=== PATIENT | female | born 1970 | race Caucasian/White ===

== ENCOUNTER 2016-06-25 13:06 | Emergency (ER) | payer MEDICAID ==
[~2016-06-25] VITALS: Ht 152.4 cm; Wt 76.0 kg
[~2016-06-25 13:06] MED LIST: FIORICET PO; HYD25 PO; IMIT25 PO; KENC1 TOP; ONDA4TAB35 PO; PRED20TA PO
[2016-06-25 13:34] VITALS: Ht 152.4 cm; Wt 76.0 kg
[2016-06-25] MEDS ORDERED: ACET500C5 PO (14:58)
[2016-06-25] MEDS ORDERED: ACETAMINOPHEN 325 MG TAB PO ONE (15:00)
[2016-06-25] MEDS ORDERED: SODI126M NASAL (15:01)
[2016-06-25] MEDS ORDERED: GUAI-637 PO (15:01)
[2016-06-25 16:00] VITALS: BP 148/70; PULSE 100; RESP 16; TEMP 98.3
--- NOTE | 2016-06-25 20:02 | ERD ---
ER Documentation Chief Complaint Date/Time DATE: 06/25/16 TIME: 19:56 Chief Complaint PT HAS COUGH X 3 WEEKS, TEMP 101.2, HR 114 HPI 46-year-old female complaining of cough and fever 3 days. Cough is nonproductive. She also reports body aches and headache. She did not take any medication at home for fever or pain. Denies shortness of breath. Denies abdominal pain, nausea, vomiting, or diarrhea. Denies neck pain. ROS All systems reviewed and are negative except as per history of present illness. Medications Home Meds Active Scripts Sodium Chloride (Saline Nasal Mist) 126 Ml Mist, 2 SPRAY NASAL Q2H Y for NASAL CONGESTION, #1 BOTTLE Prov:REMIGIO BOJORQUEZ NP 06/25/16 Guaifenesin* (Robitussin*) 100 Mg/5 Ml Syrup, 200 MG PO Q4H Y for COUGH, #120 ML Prov:REMIGIO BOJORQUEZ NP 06/25/16 Acetaminophen* (Tylophen*) 500 Mg Capsule, 1 CAP PO Q6H Y for PAIN AND OR ELEVATED TEMP, #20 CAP Prov:REMIGIO BOJORQUEZ [employer]GRAMMABLE [employer]IC [employer]ER [employer]SEMBLER 06/25/16 Prednisone* (Prednisone*) 20 Mg Tab, 60 MG PO DAILY for 5 Days, TAB Prov:LINDA SMITH PA-C 01/11/16 Triamcinolone Acetonide (Triamcinolone Acetonide) 0.1% - 15 Gm Cream.gm., 1 APPLIC TOP BID, #1 TUB Prov:LINDA SMITH PA-C 01/11/16 Hydrochlorothiazide* (Hydrochlorothiazide*) 25 Mg Tab, 25 MG PO DAILY, #30 TAB Prov:MEENU WEBER MD 11/22/14 Sumatriptan Succinate* (Imitrex*) 25 Mg Tablet, 25 MG PO BID Y for HEADACHE, # 10 TAB May repeat after 2 hours if needed; MAX 200 mg/24 hours Prov:MEENU WEBER MD 11/22/14 Ondansetron Hcl* (Zofran* ODT) 4 mg -ODT Tab.disper, 4 MG PO Q4H Y for NAUSEA AND OR VOMITING, #20 TAB Prov:ROBBI KRAUS PA-C 11/22/14 Acetamin/Butalbital/Caffeine* (Fioricet*) 1 Tab Tab, 1 TAB PO Q4H Y for PAIN LEVEL 1-5, #20 TAB Prov:ROBBI KRAUS PA-C 11/22/14 Allergies Allergies: Coded Allergies: No Known Allergy (Unverified , 11/22/14) PMhx/Soc Medical and Surgical Hx: pt denies Medical Hx, pt denies Surgical Hx Hx Alcohol Use: No Hx Substance Use: No Hx Tobacco Use: No Smoking Status: Never smoker Physical Exam Vitals Vital Signs Date Time Temp Pulse Resp B/P Pulse Ox O2 Delivery O2 Flow Rate FiO2 06/25/16 16:00 98.3 100 16 148/70 98 Room Air 06/25/16 13:34 101.2 114 18 145/77 94 Physical Exam General impression: Well-developed, well-nourished. Alert, oriented, in no acute distress Head: Normocephalic, atraumatic. Eyes: PERRL, EOM normal. Sclerae are normal. Conjunctiva not injected. ENT: External canals patent. TM'sclear. Nasal mucosa erythematous and swollen with clear nasal discharge. Oral mucosa and oropharynx are normal. Neck: Supple, nontender. No lymphadenopathy. No nuchal rigidity. Respiration: Normal respiratory effort. Lungs clear to auscultate bilaterally. No wheezes, rales or rhonchi. Cardiovascular: Regular rate and rhythm. No murmurs or extra heart sounds. Abdomen: Abdomen normal to inspection. Nontender. No masses or organomegaly. Bowel sounds normal. Back: Normal to inspection. No midline spine tenderness. No CVA tenderness. Extremities: Extremities normal to inspection, nontender. ROM normal. Neuro: Mental status normal, speech normal. TEXTBOOK ASSOCIATE grossly intact. Skin: Normal turgor. No rash or lesions. Psych: Normal mood and affect. Results 24 hrs Current Medications Medications (Trade) Dose Ordered Sig/Ivette Route PRN Reason Start Time Stop Time Status Last Admin Dose Admin Acetaminophen (Tylenol Tab) 650 mg ONCE ONCE PO 06/25/16 15:00 06/25/16 15:01 DC 06/25/16 15:56 Procedures/MDM 46-year-old female presented ED with fever and cough 3 days. Tylenol given to the patient in the ED for fever reduction. Patient is in no respiratory distress. Lungs are clear to auscultate. I doubt that patient has pneumonia or bronchitis. Patient's symptoms are consistent with flulike illness. Since her symptom onset has been more than 48 hours, I do not feel Tamiflu is beneficial. Patient advised to increase fluid intake and rest, and follow-up with her PCP in 2-3 days. Patient appears well, stable for discharge and outpatient management. Medical decision making shared with patient and family. Education provided to patient and family. Patient and family expressed understanding of the plan. Medications on discharge: Tylenol, Robitussin, saline nasal spray. Follow-up: Primary care provider in 2-3 days or return to ED if worse. Departure Diagnosis: Primary Impression: Flu-like symptoms Condition: Good Patient Instructions: Influenza (Adult) [facility] Usted se infante hecho un examen mdico de control que le indica que no est en micky condicin que requiera tratamiento urgente en el Departamento de Emergencia. Un estudio ms profundo y el tratamiento de perdue condicin pueden esperar sin ningn riesgo hasta que usted sea atendida/o en el consultorio de perdue mdico o micky cl alverto. Es responsabilidad suya arreglar micky anne para el seguimiento del jennifer. MANEJO DE CONDICIONES NO URGENTES EN EL FUTURO 1) Si usted tiene un mdico de atencin primaria: Usted debera llamar a perdue mdico de atencin primaria antes de venir al departamento de emergencia. Despus de las horas de consultorio, perdue doctor o perdue asociado/a est disponible por telfono. El mdico o enfermero de marissa en el servicio telefnico puede asesorarle por taryn medio para atender el problema, o jennifer contrario se puede programar micky anne. 2) Si usted no tiene un mdico de atencin primaria: Llame al mdico o clnica de referencia que aparece abajo claudia las horas de consultorio para hacer micky anne para que le vean. CLINICAS: [facility] [id number] [facility] [phone] [facility] [phone] [place] [id number] [phone] [facility] [phone] [address] [facility] [phone] [address] Additional Instructions: Llame al doctor MAANA y jesse micky ANNE PARA DENTRO DE 2-3 LAINEZ.Dgale a la secretaria que nosotros le instruimos hacer esta anne.Avise o llame si perdue condicin se empeora antes de la anne. Regresa aqui si peor o no mejor. REMIGIO BOJORQUEZ NP Jun 25, 2016 20:01
== END 2016-06-25 16:02 | disposition home or self-care (01) ==
LOC: FTE 13:06
DX: R05 Cough (principal); R50.9 Fever, unspecified; R51 Headache; I10 Essential (primary) hypertension
CPT/HCPCS: Z7502; Z7610; 99283